=== PATIENT | male | born 1975 | race Caucasian/White ===

== ENCOUNTER 2023-10-25 11:04 | Emergency (ER) | payer OTHER, SELFPAY ==
[2023-10-25 11:08] VITALS: BP 103/52
[2023-10-25 11:09] VITALS: BP 103/52
[2023-10-25 11:33] LABS: % Basophils 0.6 % (0-2); % Eosinophils 1.1 % (0-6); % Immature Granulocytes 0.4 % (0-0.5); % Monocytes 6.2 % (1.7-9.3); % Neutrophils 58.7 % (42.2-75.2); Absolute Eosinophils 0.1 10^3/uL (0-0.7); Absolute Lymphocytes 1.8 10^3/uL (1.2-3.4); Absolute Monocytes 0.3 10^3/uL (0.1-0.6); Absolute Neutrophils 3.2 10^3/uL (1.4-6.5); Hematocrit 40.5 % (39.0-52.0); Hemoglobin 14.6 g/dL (13.0-18.0); Mean Corpuscular Volume 88.8 fL (80.0-94.0); Mean Platelet Volume 8.9 fL (7.4-10.4); Nucleated Red Blood Cells % 0 % (-); Platelet Count 337 10^3/uL (130-400); Red Blood Cell Count 4.56 10^6/uL (4.70-6.10); Red Cell Dist. Width 11.9 % (11.5-14.5); White Blood Cell Count 5.4 10^3/uL (4.8-10.8)
[2023-10-25] MEDS: NSS 1000 IV (11:37)
[2023-10-25 11:52] LABS: ALT (SGPT) 19 U/L (0-50); AST (SGOT) 26 U/L (17-59); Albumin 4.3 g/dl (3.5-5.0); Alkaline Phosphatase 66 U/L (38-126); Blood Urea Nitrogen 10 mg/dl (9-20); Calcium 8.6 mg/dl (8.4-10.2); Carbon Dioxide 19 mmol/L (22-30); Chloride 105 mmol/L (98-107); Glucose 81 mg/dl (70-99); Potassium 4.2 mmol/L (3.5-5.1); Sodium 138 mmol/L (135-145); Total Bilirubin 0.6 mg/dl (0.2-1.3); Total Protein 6.7 g/dl (6.3-8.2); eGFR > 60.00
[2023-10-25 12:00] VITALS: BP 95/62
[2023-10-25 12:13] LABS: Troponin I < 0.012 ng/ml
--- NOTE | 2023-10-25 12:25 | ED.GENMED ---
History of Present Illness
General
Chief Complaint: Fainting/Passed Out
Source: patient, spouse and family
Time Seen by Provider: 10/25/23 11:08
Nursing documentation reviewed up to this point in time: agreed with
History of Present Illness
History of Present Illness:
The patient is a pleasant 48-year-old man who was walking around a flea market earlier today, felt lightheaded and passed out for 1 minute. Patient reports he did not fall down to the ground because he had asked his son for help when he felt
lightheaded. Patient denies all chest pain and shortness of breath. He denies fever, vomiting, diarrhea and bloody stool. His reports he has been working in a hot condition all week and is worried he might be dehydrated.
Past History
Past History
ED Past Medical History: Other
ED Past Surgical History: Other
Social History
Tobacco: Other
Alcohol: Other
Drug: None
Personal:
Living: with family
Employment: Employed
Family History
Family History: Other
Review of Systems
Review of Systems
Allergies reviewed?: Yes
All Other Systems: ROS reviewed and negative except as documented in HPI and ROS
Constitutional: Reports fatigue
EENT: Reports no symptoms
Respiratory: Reports no symptoms
Cardiac: Reports syncope
ABD/GI: Reports no symptoms
: Reports no symptoms
Musculoskeletal: Reports no symptoms
Skin: Reports no symptoms
Neurological: Reports no symptoms
Endocrine: Reports no symptoms
Hematologic/Lymphatic: Reports no symptoms
Psychiatric: Reports no symptoms
Phy Exam
Physical Exam
Physical Exam:
Physical Exam
General: no apparent distress, not acutely ill
Neck: supple. no meningeal signs. normal psoterior pharynx
Heart: s1/s2 regular rate and rhythm, no murmur. equal radial pulses.
Lungs: no acute respiratory distress. clear bilaterally
Abdomen: normal bowel sounds. not tender. no CVAT
Neuro: alert and oriented. no focal neurological deficits
Skin: no rash
Psychiatric: well kept. interactive and cooperative
Extremities: no edema. no calf tenderness. negative homans. good distal pulses
Course
Orders/Labs/Results
Orders:
Orders
10/25/23 11:19
Electrocardiogram (*1) Urgent
Reason for Study: Syncope
EKG- Treatment ONCE
10/25/23 11:21
CMP [Comprehensive Metabolic Panel] Urgent
Complete Blood Count/With Diff Urgent
Troponin I Urgent
10/25/23 11:33
0.9% Sodium Chloride 1000 ml [Nss] 1,000 ml IV BOLUS
10/25/23 13:20
Acetaminophen [Tylenol] 1,000 mg PO NOW STA
Abnormal Lab Results
10/25/23
11:21
RBC 4.56 L 10^6/uL
(4.70-6.10)
MCH 32.0 H pg
(27.0-31.0)
Carbon Dioxide 19 L mmol/L
(22-30)
10/25/23 11:21
10/25/23 11:21
Vital Signs
Initial and Last Documented VS:
Initial Vital Signs
Temp Pulse Resp BP Pulse Ox
98.1 F 78 14 103/52 92
10/25/23 11:08 10/25/23 11:08 10/25/23 11:08 10/25/23 11:08 10/25/23 11:08
Last Documented Vital Signs
Temp Pulse Resp BP Pulse Ox
98.1 F 53 16 107/69 96
10/25/23 11:08 10/25/23 13:41 10/25/23 13:41 10/25/23 13:41 10/25/23 13:41
MDM/Problems Addressed
Differential Diagnosis Includes:
Acute dehydration, acute coronary syndrome, vasovagal reaction
MDM/Problems Addressed:
Patient presents after an episode of acutely passing out
*Pulse Oximetry
Patient hypoxic: no
*EKG
Interpreted by ED Provider?: Yes
Interpretation: normal
Comparison EKG: no comparison EKG present
Rate: normal
Rhythm: sinus
[place]: normal axis
Interval: normal interval
QRS Pattern: normal QRS
Ischemia: no ischemia
*Engineering Mgr Interpretation
Rate: normal
Interpretation: normal
Rhythm: sinus
*Critical Care Note
Total Time (30-74mins, 75-104mins- exclusive of procedures): Not Applicable
Data Reviewed
Source: patient, spouse and family
Patient Management
Social determinants of health affecting care: Living situation and Strong social support
Update Note
Update Note:
Patient remains well and comfortable appearing. There is no history to suggest seizure. Patient is not anemic. He is able to eat and drink without difficulty. There are no cardiac arrhythmias. Patient encouraged to drink lots of fluids and eat
good meals today.
ED Attending Note
-
Portions of this chart may have been created with voice recognition software.� Occasional wrong word or��sound alike� substitutions may have occurred due to the inherent limitations of voice recognition software.
Discharge Plan
Departure
Patient Disposition: Home (Routine Discharge)
Date of Disposition: 10/25/23
Time of Disposition: 13:48
Patient with high blood pressure during this ER visit?: No
Condition: Good
Covid-19: Not Applicable
Discharge Problem:
Syncope
Instructions: Syncope (Fainting) (DC)
Referrals:
Tessy Vick DO [Family Provider] -
Activity Restrictions/Additional Instructions:
Drink lots of fluids and eat high-protein meals today. Please return with any further episodes of passing out, chest pain or shortness of breath
Interventions
Interventions:
*Risk Screen - Suicide Last Done: 10/25/23 13:55
*General Assessment Last Done: 10/25/23 13:55
*Neglect/Abuse Screening Last Done: 10/25/23 13:55
ED- Fall Risk Assessment Last Done: 10/25/23 13:55
*ED COVID-19 Vaccine History Last Done: 10/25/23 11:16
*Nursing Disposition Last Done: 10/25/23 13:55
ED- Cardiac Assessment Last Done: 10/25/23 11:16
ED- Neurological Assessment Last Done: 10/25/23 13:55
Discharge Date and Time
Discharge Date/Time: 10/25/23 13:55
Print Language: MONEGASQUE
[2023-10-25 13:00] VITALS: BP 95/61
[2023-10-25] MEDS: TYLENOL 1000 MG PO (13:37)
[2023-10-25 13:39] VITALS: BP 107/69
[2023-10-25 13:41] VITALS: BP 107/69
== END 2023-10-25 13:55 | disposition home or self-care (01) ==
LOC: EMR 11:04
PROVIDERS: EMERGENCY PHYSICIAN Emergency Medicine; FAMILY PHYSICIAN Family Medicine
DX: R55 Syncope and collapse (principal)
CPT/HCPCS: 99284; 96360; 80053; 84484; 85025; 93005